=== PATIENT | male | born 2000 | race Caucasian/White ===

== ENCOUNTER 2022-02-23 20:28 | Emergency (ER) | payer OTHER ==
[~2022-02-23] VITALS: Ht 27.9 cm; Wt 104.5 kg
[2022-02-23 20:59] LABS: BASO # 0.03 K/mm3 (0.02-0.10); EOS # 0.27 K/mm3 (0.04-0.40); EOS % 2.3 % (0.0-4.0); HEMATOCRIT 45.9 % (42.0-52.0); HEMOGLOBIN 15.8 g/dL (13.5-18.0); LYMPH# 2.48 K/mm3 (1.50-4.00); MEAN CELL VOLUME 84 fl (78-100); MEAN CORPUSCULAR HEMOGLOBIN 29 pg (27-31); MEAN CORPUSCULAR HGB CONC 34 g/dL (33-37); MEAN PLATELET VOLUME 10.2 fl (7.4-10.4); PLATELET COUNT 287 K/mm3 (130-400); RED BLOOD COUNT 5.49 M/mm3 (4.20-5.60); RED CELL DISTRIBUTION WIDTH 13.2 % (11.5-14.5); WHITE BLOOD COUNT 11.9 K/mm3 (4.8-10.8)
[2022-02-23 21:11] LABS: ALBUMIN 4.5 g/dL (3.5-5.0); POTASSIUM 3.7 mmol/L (3.5-5.1)
[2022-02-23 21:13] LABS: TOTAL PROTEIN 7.8 g/dL (6.4-8.3)
[2022-02-23 21:15] LABS: TOTAL BILIRUBIN 0.3 mg/dL (0.2-1.2)
[2022-02-23] MEDS ORDERED: AZITHROMYCIN 250MGPK PO (22:11)
[2022-02-23 22:13] VITALS: BP 145/87
[2022-02-23 22:27] LABS: URINE WBC 0 /hpf (0-3)
[2022-02-23 22:46] LABS: URINE APPEARANCE CLEAR; URINE BILIRUBIN NEGATIVE (NEGATIVE); URINE BLOOD TRACE (NEGATIVE); URINE COLOR YELLOW; URINE GLUCOSE NEGATIVE (NEGATIVE); URINE KETONE NEGATIVE (NEGATIVE); URINE LEUKOCYTE ESTERASE NEGATIVE (NEGATIVE); URINE NITRATE NEGATIVE (NEGATIVE); URINE PROTEIN(semi-quant) TRACE (NEGATIVE); URINE UROBILINOGEN NORMAL (NORMAL)
== END 2022-02-23 22:30 | disposition home or self-care (01) ==
LOC: ED 20:28
PROVIDERS: Nurse Practitioner
DX: R05.1 Acute cough (principal); Z20.822 Contact with and (suspected) exposure to COVID-19; Z88.0 Allergy status to penicillin